=== PATIENT | female | born 1965 | race Caucasian/White ===

== ENCOUNTER 2017-01-01 11:32 | Emergency (ER) | payer MEDICAID ==
[~2017-01-01] VITALS: Wt 72.0 kg
[~2017-01-01 11:32] MED LIST: LEVE500V10 PO
[2017-01-01] MEDS ORDERED: KETOROLAC 30 MG INJ IM STA (12:29)
[2017-01-01] MEDS ORDERED: DIAZEPAM 5 MG TAB PO ONE (12:30)
[2017-01-01] MEDS ORDERED: CYCL-319 PO (12:49)
[2017-01-01] MEDS ORDERED: IBUP-1542 PO (12:49)
--- NOTE | 2017-01-01 12:56 | ERD ---
ER Documentation Chief Complaint Date/Time DATE: 01/01/17 TIME: 12:51 Chief Complaint BILAT HIP PAIN NO TRAUMA. NOT BETTER WITH CHIROPRACTOR. HPI This is a 51-year-old female presenting to the emergency department complaining of bilateral lower back pain that radiates down her hip for 1 month. Patient states the pain is moderate in severity. She states it goes on and off. She states that she has been followed up with a primary care doctor and also has been seen by chiropractor which did not relieve her pain. Patient states her lower back pain hurts more with movement. Patient is also complaining of neck pain stating that increased pain with movement. Patient states he has not tried any medications for this. Denies saddle anesthesia, bladder or bowel incontinence ROS All systems reviewed and are negative except as per history of present illness. Medications Home Meds Active Scripts Cyclobenzaprine Hcl* (Cyclobenzaprine Hcl*) 10 Mg Tablet, 10 MG PO TID, #15 TAB Prov:VIVIEN ACOSTA PA-C 01/01/17 Ibuprofen* (Motrin*) 600 Mg Tab, 600 MG PO Q6H Y for PAIN AND OR ELEVATED TEMP, #30 TAB Prov:VIVIEN ACOSTA PA-C 01/01/17 Reported Medications Levetiracetam (Keppra) 500 Mg/5 Ml Vial, 300 MG PO DAILY, VIAL (DILUTED IN NS 100 ML) 04/25/14 Allergies Allergies: Coded Allergies: No Known Allergy (Unverified , 07/24/16) PMhx/Soc History of Surgery: Yes (C SECTION ) Anesthesia Reaction: No Hx Respiratory Disorders: No Hx Cardiac Disorders: No Hx Psychiatric Problems: No Hx Miscellaneous Medical Probl: No Hx Alcohol Use: No Hx Substance Use: No Hx Tobacco Use: No Physical Exam Vitals Vital Signs Date Time Temp Pulse Resp B/P Pulse Ox O2 Delivery O2 Flow Rate FiO2 01/01/17 11:44 98.8 65 21 166/74 100 Physical Exam GENERAL: WD/WN, in no apparent distress, non-toxic appearing HENT: NC/AT EYES: Conjunctiva normal NECK: Supple, tender to palpation in trapezius muscle, nontender on spine midline, pain with movement PULM: Normal labored breathing CV: Good capillary refill GI: Non-distended, no guarding BACK: no deformities noted, normal spinal curvature, TTP on lumbar region, non- tender on spine midline, negative straight leg raise, patient had full range of motion with movement EXT: No clubbing, cyanosis, or edema NEURO: Moves on all fours, sensation intact, normal gait SKIN: intact PSYCH: Normal mood Results 24 hrs Current Medications Medications (Trade) Dose Ordered Sig/Maxine Route PRN Reason Start Time Stop Time Status Last Admin Dose Admin Ketorolac Tromethamine (Toradol) 30 mg ONCE STAT IM 01/01/17 12:29 01/01/17 12:30 DC 01/01/17 12:59 Diazepam (Valium) 10 mg ONCE ONCE PO 01/01/17 12:30 01/01/17 12:31 DC 01/01/17 12:58 Procedures/MDM This is a 51-year-old female presenting to the emergency room complaining of lower back pain that radiates down her leg consistent with sciatica and neck pain for 1 month. This is likely a muscular strain and tension. Patient describes the pain increasing with movement with her neck and back. Patient does not seem to be in any acute distress, she is speaking clearly and she has full range of motion of her neck and her back. Patient was requesting x-rays. Lumbar x-ray did not show any evidence of acute pathology. Radiologist stated 1. Mild superior endplate vertebral body height loss of L1, which may be chronic. If there is clinical concern for acute fracture, recommend CT or MRI. 2. Mild degenerative change of the lumbar spine. CT was done and radiologist stated: No evidence of acute lumbar vertebral compression fracture. Mild degenerative changes L4-5 and L5-S1. Patient was given Toradol in the ED along with Valium. She is given a prescription for naproxen and Flexeril. I discussed with patient that she needs to follow-up with her primary care physician for further evaluation management, and possible referral to see orthopedist and physical therapist. Patient is neurovascular intact for discharge. Discussed return the ER for any worsening symptoms. She understands and agrees with plan Departure Diagnosis: Primary Impression: Back pain Back pain location: low back pain Chronicity: chronic Back pain laterality : bilateral Sciatica presence: with sciatica Sciatica laterality: bilateral sciatica Qualified Code: M54.42 - Chronic bilateral low back pain with bilateral sciatica Additional Impressions: Neck pain Lumbar strain Encounter type: initial encounter Qualified Code: S39.012A - Lumbar strain, initial encounter Condition: Stable Patient Instructions: Muscle Spasm, Back Pain (Acute Or Chronic), Neck Pain, No Trauma, Back Pain W/ Sciatica Referrals: [facility] Additional Instructions: Visite a [facility] para un EXAMEN.Regrese a estas instalaciones si no se mejora tory esperbamos o tory le dijimos. [place] toda la medicina [place] y tory se le indic. Regrese a estas instalaciones si no se mejora tory esperbamos o tory le dijimos. La medicina que se le recet puede causarle sueo.NO DEBE MANEJAR NI OPERAR MAQUINARIAS PELIGROSAS mientras esta tomando esta medicina! VIVIEN ACOSTA PA-C Jan 01, 2017 12:56
--- NOTE | 2017-01-01 13:59 | RADRPT ---
PROCEDURE: Lumbar spine series CLINICAL INDICATION: Pain TECHNIQUE: Three views of the lumbar spine are available for review COMPARISON: None available FINDINGS: The normal lumbar lordosis is preserved. Alignment is intact. No acute fracture or dislocation is s een. There is subtle superior endplate vertebral body height loss which is age indeterminate. Verte bral body heights are otherwise well maintained there is mild multilevel intervertebral disk height loss with subtle anterior osteophytes. Paraspinous soft tissues are grossly unremarkable. IMPRESSION: 1. Mild superior endplate vertebral body height loss of L1, which may be chronic. If there is clin ical concern for acute fracture, recommend CT or MRI. 2. Mild degenerative change of the lumbar spine. RPTAT: KK .Oliver Moreno MD, Date Time Electronically viewed and signed by .Oliver Moreno MD, on 01/01/2017 13:59 .B/
--- NOTE | 2017-01-01 15:05 | RADRPT ---
PROCEDURE: CT L-Spine. CLINICAL INDICATION: Back pain TECHNIQUE: A CT of the lumbar spine was performed on a multidetector CT scanner utilizing axial im ages from the thoracic lumbar junction through the lumbar sacral junction. Sagittal and coronal ref ormatted images were made. The CTDIvol is 19mGy and the DLP is 501mGycm. One or more of the followin g dose reduction techniques were used: Automated exposure control, Adjustment of the mA and/or kV ac cording to patient size, and/or use of iterative reconstruction technique. COMPARISON: Correlation lumbar spine x-ray today FINDINGS: No evidence of an acute lumbar vertebral compression fracture. L1-2: The disk space height is maintained. No significant disk protrusion, spinal canal stenosis or neural foraminal narrowing. L2-3: The disk space height is maintained. No significant disk protrusion, spinal canal stenosis or neural foraminal narrowing. L3-4: The disk space height is maintained.No significant disk protrusion, spinal canal stenosis or n eural foraminal narrowing. L4-5: The disk space height is maintained. Small disk bulge extending to the foramen bilaterally, le ft greater than right. There is moderate left and mild to moderate right foraminal narrowing. No s ignificant spinal canal narrowing. L5-1: Mild disk height loss posteriorly. Moderate disk bulge with superimposed left central to left foraminal 3 mm disk protrusion. There is narrowing of the left lateral recess and moderate left fo raminal narrowing. Mild right foraminal narrowing. No significant spinal canal narrowing. The paraspinous soft tissues are grossly unremarkable. IMPRESSION: No evidence of acute lumbar vertebral compression fracture. Mild degenerative changes L4-5 and L5-S1. RPTAT: AA .David Jolly MD, MD Date Time Electronically viewed and signed by .David Jolly MD, MD on 01/01/2017 15:05 .T/
[2017-01-01 15:28] VITALS: BP 152/75; PULSE 76; RESP 19; TEMP 98.4
== END 2017-01-01 15:29 | disposition home or self-care (01) ==
LOC: FTE 11:32
DX: S39.012A Strain of muscle, fascia and tendon of lower back, initial encounter (principal); M54.2 Cervicalgia; X58.XXXA Exposure to other specified factors, initial encounter; Y92.9 Unspecified place or not applicable
CPT/HCPCS: 72100; 72131; 96372; J1885; Z7502; Z7610

== ENCOUNTER 2018-06-06 13:02 | Observation (INO) | END 2018-06-07 14:10 | disposition home or self-care (01) ==

== ENCOUNTER 2018-08-06 07:47 | Day surgery (SDC) | END 2018-08-06 14:10 | disposition home or self-care (01) ==